=== PATIENT | female | born 1995 | race Caucasian/White ===

== ENCOUNTER 2017-11-05 17:45 | Outpatient (CLI) | payer OTHER, MEDICAID ==
[2017-11-05 19:31] VITALS: BP 125/78
--- NOTE | 2017-11-08 10:48 | HISTORY & PHYSICAL EXAMINATION ---
DATE OF SERVICE: 11/05/2017 Physician: Royal Crews MD LABOR AND DELIVERY NOTE DIAGNOSES 1. Perceived decreased movement. 2. A 29-week 1-day gestation. 3. Reactive nonstress test. HISTORY OF PRESENT ILLNESS: Patient is a 22-year-old , 2, para 1-0-0-2 woman cared f or by Dr. Jackson at the [facility]. Thus far, her care has been unremarkable. Today she noted decreased movement, where previously she had noted daily movement. She has no contracti ons, fluid loss, or pelvic pressure. When she arrived in Labor and Delivery, the fetus began to move again with the usual vigor. PHYSICAL EXAMINATION GENERAL: Well groomed, pleasant. VITAL SIGNS: Pulse 77, blood pressure 125/78. NECK: Supple. ABDOMEN: Nontender. UTERUS: Appropriate size approximately 28 cm; normal resting tone, no contractions. EXTERNAL MONITOR: Baseline is 135 with multiple 15 x 15 accelerations. One isolated contracti on. No worrisome decelerations. ASSESSMENT: Patient perceived decreased movement at 29 weeks that spontaneously improved with a reactive nonstress test. Patient was given reassurance and instructed to keep her next appointment with Dr. Jackson at the [facility]. [facility] cc: Royal Crews MD [facility] TD: 11/05/2017 19:12
== END 2017-11-05 19:07 | disposition home or self-care (01) ==
LOC: WFO 17:45 → FBP 17:48 → WFO 19:07
PROVIDERS: ATTEND Obstetrics & Gynecology
DX: O36.8130 Decreased fetal movements, third trimester, not applicable or unspecified (principal); Z3A.29 29 weeks gestation of pregnancy
CPT/HCPCS: 99213